=== PATIENT | male | born 1935 | race Caucasian/White ===

== ENCOUNTER → 2018-02-15 | Outpatient (CLI) | payer MEDICARE, OTHER | END | disposition home or self-care (01) | LOC: CFH 15:10 | PROVIDERS: ATTEND Internal Medicine Cardiovascular Disease | DX: I08.1 Rheumatic disorders of both mitral and tricuspid valves (principal); I71.2 Thoracic aortic aneurysm, without rupture; I10 Essential (primary) hypertension | CPT/HCPCS: 93306 ==

== ENCOUNTER 2019-03-16 09:31 | Outpatient (CLI) | payer MEDICARE, OTHER | END 2019-03-16 23:59 | disposition home or self-care (01) | LOC: CVU 09:31 | PROVIDERS: ATTEND Internal Medicine Cardiovascular Disease | DX: I08.3 Combined rheumatic disorders of mitral, aortic and tricuspid valves (principal); I48.91 Unspecified atrial fibrillation; I10 Essential (primary) hypertension | CPT/HCPCS: 93306 ==

== ENCOUNTER → 2019-10-26 | Outpatient (CLI) | payer MEDICARE, OTHER ==
[~2019-10-26] MED LIST: REGADENOSON 0.4 MG/5 ML SYRINGE ONE
== END | disposition home or self-care (01) ==
LOC: CFH 08:09
PROVIDERS: ATTEND Internal Medicine
DX: Z01.810 Encounter for preprocedural cardiovascular examination (principal)
CPT/HCPCS: 78452; 93017; A9502; J2785

== ENCOUNTER → 2020-02-01 | Outpatient (CLI) | payer MEDICARE, OTHER ==
[~2020-02-01] MED LIST changes: +ACET-1600 PO; +CYAN1TAB29 PO; +ERGO500017 PO; +GLUC100020 PO; +KETO15CR17 TP; +LEVO150T5 PO; +LISI40TA PO; +METO25TA35 PO; -REGADENOSON 0.4 MG/5 ML SYRINGE ONE; +RIVA20TA PO
[2020-02-01 10:19] LABS: MICROSCOPIC NOT IND
[2020-02-01 10:36] LABS: BASOPHILS # (AUTO) 0.04 x10^3/uL (0-0.1); BASOPHILS % (AUTO) 1 % (0-1); EOSINOPHILS # (AUTO) 0.43 x10^3/uL (0-0.4); EOSINOPHILS % (AUTO) 6 % (1-7); LYMPHOCYTES # (AUTO) 1.41 x10^3/uL (1-3.4); LYMPHOCYTES % (AUTO) 21 % (22-44); MD NO; MEAN CORPUSCULAR HEMOGLOBIN 31.5 pg (27.5-34.5); MEAN CORPUSCULAR HGB CONC 33.6 g/dL (33.2-36.2); MEAN CORPUSCULAR VOLUME 93.6 fL (81-97); MEAN PLATELET VOLUME 7.5 fL (7.4-10.4); MONOCYTES # (AUTO) 0.63 x10^3/uL (0.2-0.8); MONOCYTES % (AUTO) 9 % (2-9); NEUTROPHILS # (AUTO) 4.36 x10^3/uL (1.8-6.8); NEUTROPHILS % (AUTO) 64 % (42-75); PLATELET COUNT 206 x10^3/uL (130-400); RED BLOOD COUNT 5.41 x10^6/uL (4.38-5.82); RED CELL DISTRIBUTION WIDTH 13.4 % (9.4-14.8)
[2020-02-01 10:47] LABS: ALANINE AMINOTRANSFERASE 32 U/L (12-78); ANION GAP 6 mmol/L (5-15); CALCIUM 10.2 mg/dL (8.5-10.1); CHLORIDE 103 mmol/L (98-107); CREATININE 0.91 mg/dL (0.7-1.3)
[2020-02-01 10:49] LABS: ALKALINE PHOSPHATASE 80 U/L (45-117); BILIRUBIN,TOTAL 1.8 mg/dL (0.2-1.0); TOTAL PROTEIN 7.6 g/dL (6.4-8.2)
== END | disposition home or self-care (01) ==
LOC: STAR 08:58
PROVIDERS: ATTEND Orthopaedic Surgery
DX: Z01.818 Encounter for other preprocedural examination (principal); M17.11 Unilateral primary osteoarthritis, right knee; I48.91 Unspecified atrial fibrillation
CPT/HCPCS: 36415; 80053; 81003; 85025; 87081; 87806; 93005; G0475

== ENCOUNTER 2020-02-06 08:08 | Observation (INO) | payer MEDICARE, OTHER ==
[~2020-02-06] VITALS: Ht 185.4 cm; Wt 124.0 kg
[~2020-02-06 08:08] MED LIST changes: +BACITRACIN 50,000 UNIT ONE; +EPINEPHRINE 1 MG/ML, 1ML ONE; +KETOROLAC 60 MG/2 ML ONE; +ROPIvacaine/PF 0.2%, 20 ML ONE; +SODIUM CHLORIDE 0.9% 50 ML ONE; +TRANEXAMIC ACID 100 MG/ML, 10ML ONE; +morphine SULFATE/PF 1 MG/ML, 10ML ONE
[2020-02-06] MEDS ORDERED: LACTATED RINGERS 1,000 ML IV SCH (08:45)
[2020-02-06 08:48] VITALS: BP 135/89
[2020-02-06] MEDS ORDERED: FENTANYL PF 250 MCG/5ML ONE ×2 (08:52→10:54)
[2020-02-06] MEDS ORDERED: CHLORHEXIDINE 15 ML UDC MM ONE (09:00)
[2020-02-06] MEDS ORDERED: VANCOMYCIN PMX 1GM/200ML 200 ML IV ONE (09:00)
[2020-02-06] MEDS ORDERED: PROPOFOL 10 MG/ML, 20ML ONE ×2 (10:25)
[2020-02-06] MEDS ORDERED: CEFAZOLIN 1,000 MG ONE (10:25)
[2020-02-06] MEDS ORDERED: ONDANSETRON 2MG/ML, 2ML ONE (10:25)
[2020-02-06] MEDS ORDERED: DEXAMETHASONE 4 MG/ML, 1ML ONE (10:25)
[2020-02-06] MEDS ORDERED: morphine SULFATE 10 MG/ML, 1ML IVPush PRN (10:30)
[2020-02-06] MEDS ORDERED: LORazepam 2 MG/ML, 1ML IVPush PRN (10:30)
[2020-02-06] MEDS ORDERED: DIPHENHYDRAMINE 25 MG CAPSULE PO PRN (10:30)
[2020-02-06] MEDS ORDERED: HYDROmorphone 1 MG/ML, 1ML INJ IVPush PRN (10:30)
[2020-02-06] MEDS ORDERED: ACETAMINOPHEN 325 MG TABLET PO PRN ×2 (10:30)
[2020-02-06] MEDS ORDERED: OXYcodone 5 MG/5 ML ORAL.SOL UDC PO PRN (10:30)
[2020-02-06] MEDS ORDERED: ZOLPIDEM 5MG TABLET PO PRN (10:30)
[2020-02-06] MEDS ORDERED: ONDANSETRON 2MG/ML, 2ML IVPush PRN ×2 (10:30)
[2020-02-06] MEDS ORDERED: MEPERIDINE/PF 25MG/0.5ML IVPush PRN (10:30)
[2020-02-06] MEDS ORDERED: FENTANYL PF 100 MCG/2ML ONE ×2 (12:52→13:32)
[2020-02-06] MEDS ORDERED: MEPERIDINE/PF 25MG/ML,1ML ONE (12:53)
[2020-02-06] MEDS: FENTANYL PF 100 MCG/2ML IV PRN ×4 (13:00→13:40)
[2020-02-06] MEDS ORDERED: ACETAMINOPHEN 650 MG/20.3 ML UDC ONE (13:15)
[2020-02-06] MEDS ORDERED: OXYcodone 5 MG/5 ML ORAL.SOL UDC ONE (13:15)
[2020-02-06] MEDS: D5%-0.45% NACL 1,000 ML IV SCH ×4 (15:13→22:48)
[2020-02-06] MEDS ORDERED: TRANEXAMIC ACID 1,000 MG in SODIUM CHLORIDE 0.9% 100 ML IV ONE (16:00)
[2020-02-06] MEDS: OXYcodone/APAP 7.5/325MG TABLET PO PRN ×2 (16:28→21:23)
[2020-02-06] MEDS: CEFAZOLIN PMX 2GM/50ML 50 ML IVPB SCH (18:02)
[2020-02-06] MEDS: METOPROLOL TARTRATE 25 MG TAB PO SCH (18:30)
[2020-02-06] MEDS ORDERED: RIVAROXABAN 20 MG TABLET PO SCH ×2 (18:30)
[2020-02-06 19:57] VITALS: BP 143/93
[2020-02-06] MEDS: KETOCONAZOLE CRM 2%, 15GM TP SCH (21:00)
[2020-02-07 00:32] VITALS: BP 123/82
[2020-02-07] MEDS: CEFAZOLIN PMX 2GM/50ML 50 ML IVPB SCH ×2 (02:09→10:12)
[2020-02-07 04:16] VITALS: BP 108/70
[2020-02-07] MEDS: METOPROLOL TARTRATE 25 MG TAB PO SCH (05:49)
[2020-02-07] MEDS: D5%-0.45% NACL 1,000 ML IV SCH ×2 (05:50→11:13)
[2020-02-07] MEDS ORDERED: LEVOTHYROXINE 150 MCG TABLET PO SCH (06:00)
[2020-02-07 07:07] LABS: ANION GAP 4 mmol/L (5-15); CALCIUM 9.6 mg/dL (8.5-10.1); CHLORIDE 104 mmol/L (98-107); CREATININE 0.93 mg/dL (0.7-1.3)
[2020-02-07] MEDS ORDERED: RIVAROXABAN 20 MG TABLET PO SCH (08:00)
[2020-02-07 08:06] VITALS: BP 123/83
[2020-02-07] MEDS ORDERED: LISINOPRIL 40 MG TABLET PO SCH (09:00)
[2020-02-07] MEDS: KETOCONAZOLE CRM 2%, 15GM TP SCH (09:00)
[2020-02-07] MEDS ORDERED: CYANOCOBALOMIN 100MCG TABLET PO SCH (09:00)
[2020-02-07] MEDS ORDERED: VANCOMYCIN PMX 1GM/200ML 200 ML IVPB ONE (10:30)
[2020-02-07] MEDS: OXYcodone/APAP 7.5/325MG TABLET PO PRN (11:04)
[2020-02-07] MEDS ORDERED: ASPIRIN 325 MG TABLET EC PO SCH (17:00)
[2020-02-07] MEDS ORDERED: DOCUSATE 100 MG CAPSULE PO SCH (21:00)
[2020-02-15] MEDS ORDERED: ERGOCALCIFEROL 50,000 UNIT CAPSULE PO SCH (09:00)
== END 2020-02-07 12:10 | disposition home or self-care (01) ==
LOC: OUT 08:08 → 4NE 14:15 → OUT 15:00 → 4NE 15:14 → DCLOUNGE 02-07 11:55
PROVIDERS: ADMIT Orthopaedic Surgery; ATTEND Orthopaedic Surgery
DX: Z03.818 Encounter for observation for suspected exposure to other biological agents ruled out (principal); M17.11 Unilateral primary osteoarthritis, right knee; G47.30 Sleep apnea, unspecified; I25.10 Atherosclerotic heart disease of native coronary artery without angina pectoris; I71.2 Thoracic aortic aneurysm, without rupture; E78.5 Hyperlipidemia, unspecified; I48.91 Unspecified atrial fibrillation; I10 Essential (primary) hypertension; E07.9 Disorder of thyroid, unspecified; Z79.899 Other long term (current) drug therapy
CPT/HCPCS: 27447; 36415; 73564; 80048; 85018; 87635; 96365; 96366; 96367; 96375; 97110; 97161; 97165; C1713; C1776; G0378; J0171; J0690; J1100; J1885; J2175; J2274; J2405; J2704; J2795; J3010; J3370; J7120